=== PATIENT | male | born 1950 | race Caucasian/White ===

== ENCOUNTER 2021-08-22 17:46 | Emergency (ER) | payer MEDICARE, BC ==
[2021-08-22] MEDS ORDERED: Bacitracin Oint 1 GM U/D Packet TOP ONE (18:20)
[2021-08-22] MEDS ORDERED: Lidocaine 1% 5 ML VIAL INJECT ONE (18:20)
[2021-08-22] MEDS ORDERED: Diphtheria,Pertussis(Acell),Tetanus Vaccine 0.5 ML Syringe IM ONE (18:25)
[2021-08-22] MEDS ORDERED: Morphine 2 MG/ML SYRINGE IM ONE (18:26)
== END 2021-08-22 19:25 | disposition home or self-care (01) ==
LOC: JP.ED 17:46
DX: S61.411A Laceration without foreign body of right hand, initial encounter (principal); I25.2 Old myocardial infarction; E78.00 Pure hypercholesterolemia, unspecified; Z79.82 Long term (current) use of aspirin; Z79.02 Long term (current) use of antithrombotics/antiplatelets; Z23 Encounter for immunization; Z72.0 Tobacco use; W26.8XXA Contact with other sharp object(s), not elsewhere classified, initial encounter
CPT/HCPCS: 12002; 90471; 90715; 96372; 99282; J2270; 99281

== ENCOUNTER 2022-05-07 16:12 | Emergency (ER) | payer MEDICARE, BC | END 2022-05-07 17:51 | disposition home or self-care (01) | LOC: JP.ED 16:12 | DX: R07.89 Other chest pain (principal); I25.10 Atherosclerotic heart disease of native coronary artery without angina pectoris; E78.00 Pure hypercholesterolemia, unspecified; I25.2 Old myocardial infarction; J44.9 Chronic obstructive pulmonary disease, unspecified; F17.210 Nicotine dependence, cigarettes, uncomplicated; Z79.82 Long term (current) use of aspirin; Z79.899 Other long term (current) drug therapy; Z79.02 Long term (current) use of antithrombotics/antiplatelets | CPT/HCPCS: 36415; 80048; 84484; 85025; 99283; 99284 ==

== ENCOUNTER 2022-10-31 10:36 | Emergency (ER) | payer MEDICARE, BC ==
[2022-10-31] MEDS ORDERED: Doxycycline 100 MG Cap PO ONE (12:16)
== END 2022-10-31 12:33 | disposition home or self-care (01) ==
LOC: JP.ED 10:36
DX: S30.861A Insect bite (nonvenomous) of abdominal wall, initial encounter (principal); F17.210 Nicotine dependence, cigarettes, uncomplicated; I25.10 Atherosclerotic heart disease of native coronary artery without angina pectoris; E78.00 Pure hypercholesterolemia, unspecified; I25.2 Old myocardial infarction; J44.9 Chronic obstructive pulmonary disease, unspecified; Z95.5 Presence of coronary angioplasty implant and graft; Z79.82 Long term (current) use of aspirin; Z79.899 Other long term (current) drug therapy; W57.XXXA Bitten or stung by nonvenomous insect and other nonvenomous arthropods, initial encounter
CPT/HCPCS: 99281; A9270; 99282